=== PATIENT | female | born 1985 | race Hispanic/Latino ===

== ENCOUNTER 2022-11-05 10:45 | Inpatient (IN) | payer SELFPAY ==
[2022-11-05] MEDS ORDERED: levETIRAcetam 500 MG/5 ML VIAL ONE ×2 (11:19→11:21)
[2022-11-05 11:26] LABS: #Eosinphils 0.1 thou/uL (0.0-0.7); #Monocytes 0.5 thou/uL (0.11-0.59); #Neutrophils 3.3 thou/uL (1.40-6.50); %Basophils 0.6 % (0.0-1.0); %Eosinophils 1.4 % (0.0-10.0); %Lymphocytes 39.4 % (21.0-51.0); %Monocytes 7.9 % (0.0-10.0); %Neutrophils 50.4 % (42.0-75.0); Hemoglobin 12.9 g/dL (12.0-16.0); Mean Corpuscular Hemoglobin 33.7 pg (27.0-31.0); Mean Corpuscular Volume 96.3 fl (78.0-98.0); Mean Platelet Volume 8.5 fL (7.4-10.4); Platelet Count 254 10x3/uL (130-400); RBC Distribution Width 12.2 % (11.5-14.5); Red Blood Cell (RBC) Count 3.83 mill/uL (4.20-5.40); White Blood Cell (WBC) Count 6.6 10x3/uL (4.8-10.8)
[2022-11-05 11:39] LABS: Bacteria/HPF None Seen HPF (None Seen); Bilirubin Negative (Negative); Blood, Urine Negative (Negative); CAUTI Indications for Culture Spinal Cord Injury; Clarity Clear (Clear); Glucose, Urine (Dipstick) Normal (Negative); Ketone, Urine Negative (Negative); Leukocyte Negative Leu/uL (Negative); Nitrite Negative (Negative); Protein, Urine (Dipstick) Negative (Neg-Trace); RBC/HPF 0-3 HPF (0-3); Specific Gravity, Urine 1.027 (1.002-1.036); Squamous Epithelial 0-3 HPF (0-3); Urobilinogen Normal mg/dL (Less than 2); WBC/HPF 0-3 HPF (0-3)
[2022-11-05 11:42] LABS: Pregnancy Test - Urine (BHCG) Negative (Negative); Pregu Control Background? CLEAR/WHITE (CLR/WHITE); Pregu Control Bar Appear? YES (CONTROL BAR); Specific Gravity 1.027 (1.002-1.036); Urine Culture Reflex No No
[2022-11-05] MEDS ORDERED: Fosphenytoin Sodium 1,500 MG, Admixture Fee 1 EACH in Sodium Chloride 0.9% 100 ML IVPB SCH (12:00)
[2022-11-05] MEDS ORDERED: Fosphenytoin Sodium 1,500 MG in Sodium Chloride 0.9% 100 ML IVPB SCH (12:00)
[2022-11-05 12:02] LABS: Amphetamine Not Detected (NotDetected); Barbiturates Screen Detected (NotDetected); Benzodiazepine Screen Not Detected (NotDetected); Cocaine Metabolite Screen Not Detected (NotDetected); Methadone Not Detected (NotDetected); Methamphetamine Not Detected (NotDetected); Opiate Screen Not Detected (NotDetected); Oxycodone Screen Not Detected (NotDetected); Phencyclidine (PCP) Not Detected (NotDetected); THC/Cannabinoid Screen Not Detected (NotDetected); Tricyclic Screen Not Detected (NotDetected)
[2022-11-05 12:45] LABS: ALT (SGPT) 25 U/L (8-55); AST (SGOT) 20 U/L (5-34); Albumin 3.6 g/dL (3.5-5.0); Alkaline Phosphatase 84 U/L (40-110); Anion Gap 13 mmol/L (10-20); BUN (Urea Nitrogen) 8 mg/dL (7.0-18.7); Bilirubin, Total 0.2 mg/dL (0.2-1.2); Calc. Creatinine Clearance 0 mL/min (70-130); Calcium 8.3 mg/dL (7.8-10.44); Carbon Dioxide 20 mmol/L (22-29); Chloride 107 mmol/L (98-107); Estimated GFR 122; Globulin 3.3 g/dL (2.4-3.5); Glucose 91 mg/dL (70-105); Potassium 3.7 mmol/L (3.5-5.1); Protein, Total 6.9 g/dL (6.0-8.3); Sodium 136 mmol/L (136-145)
[2022-11-05] MEDS ORDERED: Ondansetron ODT 4 MG TAB SL PRN (13:45)
[2022-11-05] MEDS ORDERED: Ondansetron PF 4 MG/2 ML Vial IVP PRN (13:45)
[2022-11-05] MEDS ORDERED: Acetaminophen 325 MG TAB PO PRN (13:45)
[2022-11-05] MEDS ORDERED: Acetaminophen 500 MG TAB ONE (14:26)
[2022-11-05] MEDS ORDERED: Sertraline 100 MG TAB PO SCH (15:30)
[2022-11-05] MEDS ORDERED: Phenytoin Extended Release 100 MG CAP PO SCH (15:30)
[2022-11-05 16:43] VITALS: BMI 35.6
[2022-11-05] MEDS ORDERED: Lorazepam 2 MG/ML VIAL SLOW IVP PRN (18:49)
[2022-11-05 20:40] LABS: Dilantin 11.2 ug/mL (10.0-20.0)
[2022-11-05] MEDS ORDERED: Divalproex Sodium 125 mg Sprinkle Capsule PO SCH (21:00)
[2022-11-05] MEDS ORDERED: levETIRAcetam 500 MG TAB PO SCH (21:00)
[2022-11-05] MEDS: Fosphenytoin Sodium 100 MG in Sodium Chloride 0.9% 50 ML IVPB SCH (21:51)
[2022-11-05] MEDS ORDERED: Lacosamide 200 MG/20 ML VIAL SLOW IVP SCH (22:00)
[2022-11-06] MEDS: Lorazepam 2 MG/ML VIAL SLOW IVP PRN ×2 (02:32→08:08)
[2022-11-06] MEDS: Fosphenytoin Sodium 100 MG in Sodium Chloride 0.9% 50 ML IVPB SCH (06:14)
[2022-11-06 07:06] LABS: #Eosinphils 0.1 thou/uL (0.0-0.7); #Monocytes 0.5 thou/uL (0.11-0.59); #Neutrophils 2.9 thou/uL (1.40-6.50); %Basophils 0.7 % (0.0-1.0); %Lymphocytes 41.6 % (21.0-51.0); %Monocytes 7.8 % (0.0-10.0); %Neutrophils 48.7 % (42.0-75.0); Hemoglobin 14.1 g/dL (12.0-16.0); Mean Corpuscular Hemoglobin 32.9 pg (27.0-31.0); Mean Platelet Volume 8.8 fL (7.4-10.4); Platelet Count 274 10x3/uL (130-400); RBC Distribution Width 12.4 % (11.5-14.5); Red Blood Cell (RBC) Count 4.28 mill/uL (4.20-5.40)
[2022-11-06 07:24] LABS: Anion Gap 13 mmol/L (10-20); BUN (Urea Nitrogen) 8 mg/dL (7.0-18.7); Calc. Creatinine Clearance 211 mL/min (70-130); Calcium 8.8 mg/dL (7.8-10.44); Carbon Dioxide 23 mmol/L (22-29); Chloride 105 mmol/L (98-107); Estimated GFR 122; Glucose 81 mg/dL (70-105); Potassium 3.8 mmol/L (3.5-5.1); Sodium 137 mmol/L (136-145)
[2022-11-06] MEDS: Sertraline 100 MG TAB PO SCH (08:08)
[2022-11-06] MEDS ORDERED: levETIRAcetam 500 MG/5 ML VIAL SLOW IVP SCH (09:00)
[2022-11-06] MEDS ORDERED: levETIRAcetam in NS 1,500 MG in Premix Bag 1 BAG IVPB SCH (09:00)
[2022-11-06] MEDS ORDERED: Phenytoin Extended Release 100 MG CAP PO SCH (09:00)
[2022-11-06] MEDS ORDERED: levETIRAcetam 500 MG TAB PO SCH (09:00)
[2022-11-06] MEDS ORDERED: Lacosamide 50 MG in Sodium Chloride 0.9% 50 ML IVPB SCH (09:00)
[2022-11-06] MEDS: levETIRAcetam 500 MG TAB PO SCH (20:54)
[2022-11-06] MEDS: Lacosamide 50 mg Tablet PO SCH (20:54)
[2022-11-07] MEDS: Acetaminophen 325 MG TAB PO PRN ×2 (01:54→09:10)
[2022-11-07 06:02] LABS: #Eosinphils 0.1 thou/uL (0.0-0.7); #Monocytes 0.5 thou/uL (0.11-0.59); #Neutrophils 2.5 thou/uL (1.40-6.50); %Basophils 0.7 % (0.0-1.0); %Eosinophils 1.8 % (0.0-10.0); %Lymphocytes 46.8 % (21.0-51.0); %Monocytes 8.3 % (0.0-10.0); %Neutrophils 42.2 % (42.0-75.0); Hemoglobin 13.9 g/dL (12.0-16.0); Mean Corpuscular HGB CONC 34.2 g/dL (32.0-36.0); Mean Corpuscular Volume 96.7 fl (78.0-98.0); Mean Platelet Volume 8.4 fL (7.4-10.4); Platelet Count 260 10x3/uL (130-400); RBC Distribution Width 12.4 % (11.5-14.5); Red Blood Cell (RBC) Count 4.21 mill/uL (4.20-5.40)
[2022-11-07 06:18] LABS: Anion Gap 14 mmol/L (10-20); BUN (Urea Nitrogen) 9 mg/dL (7.0-18.7); Calc. Creatinine Clearance 187 mL/min (70-130); Calcium 8.8 mg/dL (7.8-10.44); Carbon Dioxide 22 mmol/L (22-29); Chloride 105 mmol/L (98-107); Estimated GFR 118; Glucose 85 mg/dL (70-105); Potassium 3.7 mmol/L (3.5-5.1); Sodium 137 mmol/L (136-145)
[2022-11-07] MEDS ORDERED: Phenytoin Extended Release 100 MG CAP PO SCH (09:00)
[2022-11-07] MEDS: Sertraline 100 MG TAB PO SCH (09:09)
[2022-11-07] MEDS: levETIRAcetam 500 MG TAB PO SCH (09:09)
[2022-11-07] MEDS: Lacosamide 50 mg Tablet PO SCH (09:09)
[2022-11-07 11:46] VITALS: TEMP 98.8
[2022-11-07 16:28] VITALS: BP 101/67
== END 2022-11-07 16:30 | disposition home or self-care (01) | DRG 880 ==
LOC: ERS 10:45 → T4-A 13:41 → OBSVTOIN 13:41 → IMCU/EMU 21:03 → 2SE 11-06 16:12
PROVIDERS: ADMIT Internal Medicine; ATTEND Hospitalist
DX: F44.5 Conversion disorder with seizures or convulsions (principal); F84.0 Autistic disorder; F41.9 Anxiety disorder, unspecified; F42.9 Obsessive-compulsive disorder, unspecified; F20.9 Schizophrenia, unspecified; Z88.0 Allergy status to penicillin; Z88.8 Allergy status to other drugs, medicaments and biological substances; Z79.899 Other long term (current) drug therapy; Z90.49 Acquired absence of other specified parts of digestive tract; Z98.890 Other specified postprocedural states; Z87.820 Personal history of traumatic brain injury
CPT/HCPCS: 36415; 80048; 80053; 80177; 80185; 80306; 81001; 81025; 84146; 85025; 93005; 94760; 95816; 95819; 95957; 96365; 96367; 96375; C9254; G0378; J1953; J2060; J3490; Q2009

== ENCOUNTER 2022-11-08 11:08 | Emergency (ER) | payer OTHER, SELFPAY ==
[2022-11-08] MEDS ORDERED: levETIRAcetam 500 MG/5 ML VIAL ONE (11:15)
[2022-11-08 11:49] LABS: Bacteria/HPF None Seen HPF (None Seen); Bilirubin Negative (Negative); Blood, Urine Negative (Negative); CAUTI Indications for Culture Alt mental st,lethar; Clarity Clear (Clear); Glucose, Urine (Dipstick) Normal (Negative); Ketone, Urine Negative (Negative); Leukocyte 25 Leu/uL (Negative); Nitrite Negative (Negative); Protein, Urine (Dipstick) 10 mg/dL (Neg-Trace); RBC/HPF 0-3 HPF (0-3); Specific Gravity, Urine 1.021 (1.002-1.036); Squamous Epithelial 0-3 HPF (0-3); Urobilinogen Normal mg/dL (Less than 2); WBC/HPF 0-3 HPF (0-3)
[2022-11-08 12:01] LABS: Pregnancy Test - Urine (BHCG) Negative (Negative); Pregu Control Background? CLEAR/WHITE (CLR/WHITE); Pregu Control Bar Appear? YES (CONTROL BAR); Specific Gravity 1.035 (1.002-1.036); Urine Culture Reflex No No
[2022-11-08 12:02] LABS: #Basophils 0.1 thou/uL (0.0-0.2); #Eosinphils 0.1 thou/uL (0.0-0.7); #Monocytes 0.6 thou/uL (0.11-0.59); #Neutrophils 3.7 thou/uL (1.40-6.50); %Basophils 0.7 % (0.0-1.0); %Eosinophils 1.4 % (0.0-10.0); %Lymphocytes 41.4 % (21.0-51.0); %Monocytes 7.9 % (0.0-10.0); %Neutrophils 48.3 % (42.0-75.0); Hemoglobin 13.6 g/dL (12.0-16.0); Mean Corpuscular HGB CONC 34.7 g/dL (32.0-36.0); Mean Corpuscular Volume 95.1 fl (78.0-98.0); Mean Platelet Volume 8.4 fL (7.4-10.4); Platelet Count 254 10x3/uL (130-400); RBC Distribution Width 12.2 % (11.5-14.5); Red Blood Cell (RBC) Count 4.12 mill/uL (4.20-5.40); White Blood Cell (WBC) Count 7.6 10x3/uL (4.8-10.8)
[2022-11-08 12:35] LABS: Amphetamine Not Detected (NotDetected); Barbiturates Screen Detected (NotDetected); Benzodiazepine Screen Detected (NotDetected); Cocaine Metabolite Screen Not Detected (NotDetected); Methadone Not Detected (NotDetected); Methamphetamine Not Detected (NotDetected); Opiate Screen Not Detected (NotDetected); Oxycodone Screen Not Detected (NotDetected); Phencyclidine (PCP) Not Detected (NotDetected); THC/Cannabinoid Screen Not Detected (NotDetected); Tricyclic Screen Not Detected (NotDetected)
[2022-11-08 13:01] LABS: Albumin 3.9 g/dL (3.5-5.0)
[2022-11-08 13:02] LABS: Chloride 105 mmol/L (98-107); Sodium 136 mmol/L (136-145)
[2022-11-08 13:03] LABS: Calcium 8.8 mg/dL (7.8-10.44)
[2022-11-08 13:04] LABS: Globulin 3.5 g/dL (2.4-3.5); Glucose 84 mg/dL (70-105); Protein, Total 7.4 g/dL (6.0-8.3)
[2022-11-08 13:05] LABS: Anion Gap 14 mmol/L (10-20); Bilirubin, Total 0.2 mg/dL (0.2-1.2); Carbon Dioxide 21 mmol/L (22-29)
[2022-11-08 13:06] LABS: Alkaline Phosphatase 92 U/L (40-110)
[2022-11-08 13:07] LABS: Calc. Creatinine Clearance 0 mL/min (70-130); Estimated GFR 119
[2022-11-08 13:08] LABS: BUN (Urea Nitrogen) 8 mg/dL (7.0-18.7)
[2022-11-08 13:09] LABS: ALT (SGPT) 25 U/L (8-55); AST (SGOT) 19 U/L (5-34)
[2022-11-08] MEDS ORDERED: Acetaminophen 500 MG TAB ONE (13:44)
== END 2022-11-08 13:47 | disposition home or self-care (01) ==
LOC: ERS 11:08
DX: R56.9 Unspecified convulsions (principal)
CPT/HCPCS: 36415; 70450; 80053; 80177; 80306; 81001; 81025; 85025; J1953

== ENCOUNTER 2022-11-09 10:30 | Emergency (ER) | payer OTHER | END 2022-11-09 13:47 | disposition home or self-care (01) | LOC: ERS 10:30 | DX: G40.909 Epilepsy, unspecified, not intractable, without status epilepticus (principal) | CPT/HCPCS: 36415; 70450; 80053; 80177; 80306; 81001; 81025; 85025; 96365; C9254; J1953; J3490 ==

== ENCOUNTER 2022-11-11 12:53 | Emergency (ER) | payer OTHER ==
[2022-11-11] MEDS ORDERED: LORazepam 2 MG/ML SYR.(CARPUJECT) ONE (13:19)
[2022-11-11 13:58] LABS: Amphetamine Not Detected (NotDetected); Barbiturates Screen Detected (NotDetected); Benzodiazepine Screen Detected (NotDetected); Cocaine Metabolite Screen Not Detected (NotDetected); Methadone Not Detected (NotDetected); Methamphetamine Not Detected (NotDetected); Opiate Screen Not Detected (NotDetected); Oxycodone Screen Not Detected (NotDetected); Phencyclidine (PCP) Not Detected (NotDetected); THC/Cannabinoid Screen Not Detected (NotDetected); Tricyclic Screen Not Detected (NotDetected)
[2022-11-11 13:59] LABS: Bilirubin Negative (Negative); Blood, Urine Negative (Negative); CAUTI Indications for Culture Alt mental st,lethar; Clarity Clear (Clear); Glucose, Urine (Dipstick) Normal (Negative); Ketone, Urine 20 mg/dL (Negative); Leukocyte 75 Leu/uL (Negative); Nitrite Negative (Negative); Protein, Urine (Dipstick) 30 mg/dL (Neg-Trace); Specific Gravity, Urine 1.039 (1.002-1.036); Squamous Epithelial 0-3 HPF (0-3)
[2022-11-11 14:05] LABS: #Basophils 0.1 thou/uL (0.0-0.2); #Eosinphils 0.2 thou/uL (0.0-0.7); #Monocytes 0.5 thou/uL (0.11-0.59); #Neutrophils 3.5 thou/uL (1.40-6.50); %Basophils 0.7 % (0.0-1.0); %Eosinophils 2.5 % (0.0-10.0); %Lymphocytes 38.9 % (21.0-51.0); %Monocytes 6.8 % (0.0-10.0); Hemoglobin 13.6 g/dL (12.0-16.0); Mean Corpuscular HGB CONC 35.2 g/dL (32.0-36.0); Mean Corpuscular Hemoglobin 33.3 pg (27.0-31.0); Mean Corpuscular Volume 94.6 fl (78.0-98.0); Mean Platelet Volume 8.6 fL (7.4-10.4); Platelet Count 258 10x3/uL (130-400); RBC Distribution Width 12.2 % (11.5-14.5); Red Blood Cell (RBC) Count 4.08 mill/uL (4.20-5.40); White Blood Cell (WBC) Count 6.9 10x3/uL (4.8-10.8)
[2022-11-11 14:16] LABS: Bacteria/HPF 1+ HPF (None Seen); RBC/HPF 0-3 HPF (0-3); WBC/HPF 0-3 HPF (0-3)
[2022-11-11 14:17] LABS: Urine Culture Reflex No No
[2022-11-11 14:40] LABS: ALT (SGPT) 29 U/L (8-55); AST (SGOT) 24 U/L (5-34); Albumin 3.9 g/dL (3.5-5.0); Alkaline Phosphatase 89 U/L (40-110); Anion Gap 13 mmol/L (10-20); BUN (Urea Nitrogen) 10 mg/dL (7.0-18.7); Bilirubin, Total Less than 0.2 mg/dL (0.2-1.2); Calc. Creatinine Clearance 0 mL/min (70-130); Carbon Dioxide 20 mmol/L (22-29); Chloride 106 mmol/L (98-107); Estimated GFR 119; Globulin 3.8 g/dL (2.4-3.5); Glucose 100 mg/dL (70-105); Potassium 3.9 mmol/L (3.5-5.1); Protein, Total 7.7 g/dL (6.0-8.3); Sodium 135 mmol/L (136-145)
== END 2022-11-11 15:00 | disposition home or self-care (01) ==
LOC: ERS 12:53
DX: R56.9 Unspecified convulsions (principal); Z87.891 Personal history of nicotine dependence
CPT/HCPCS: 36415; 80053; 80306; 81001; 84146; 85025; J2060

== ENCOUNTER 2022-11-12 12:39 | Emergency (ER) | payer OTHER ==
[2022-11-12 14:51] LABS: #Basophils 0.1 thou/uL (0.0-0.2); #Eosinphils 0.1 thou/uL (0.0-0.7); #Monocytes 0.5 thou/uL (0.11-0.59); #Neutrophils 3.6 thou/uL (1.40-6.50); %Basophils 0.7 % (0.0-1.0); %Eosinophils 1.7 % (0.0-10.0); %Monocytes 6.5 % (0.0-10.0); Hemoglobin 14.4 g/dL (12.0-16.0); Mean Corpuscular Hemoglobin 33.3 pg (27.0-31.0); Mean Corpuscular Volume 94.9 fl (78.0-98.0); Mean Platelet Volume 8.6 fL (7.4-10.4); Platelet Count 279 10x3/uL (130-400); RBC Distribution Width 12.3 % (11.5-14.5); Red Blood Cell (RBC) Count 4.33 mill/uL (4.20-5.40); White Blood Cell (WBC) Count 6.9 10x3/uL (4.8-10.8)
[2022-11-12 15:13] LABS: Anion Gap 15 mmol/L (10-20); BUN (Urea Nitrogen) 9 mg/dL (7.0-18.7); CK (CPK) 20 U/L (29-168); Calc. Creatinine Clearance 0 mL/min (70-130); Calcium 9.1 mg/dL (7.8-10.44); Carbon Dioxide 23 mmol/L (22-29); Chloride 105 mmol/L (98-107); Estimated GFR 117; Glucose 111 mg/dL (70-105); Potassium 4.3 mmol/L (3.5-5.1); Sodium 139 mmol/L (136-145)
== END 2022-11-12 16:17 ==
LOC: ERS 12:39
DX: R56.9 Unspecified convulsions (principal); Z87.891 Personal history of nicotine dependence
CPT/HCPCS: 36415; 80048; 80053; 80306; 81001; 82550; 84146; 85025; 99284; 99285; J2060

== ENCOUNTER 2022-12-09 23:02 | Emergency (ER) | payer OTHER ==
[2022-12-09] MEDS ORDERED: Albuterol 200 PUFF INH ONE (23:17)
[2022-12-09] MEDS ORDERED: Dexameth. Sod Phosp. 10 MG/ML (CHEMO USE ONLY) ONE (23:33)
[2022-12-10 00:15] LABS: SARS-CoV-2 NAA Rapid Test Not Detected (NotDetected)
[2022-12-10] MEDS ORDERED: Ibuprofen 200 MG TAB ONE (00:22)
== END 2022-12-10 00:31 | disposition home or self-care (01) ==
LOC: ERS 23:02
DX: R05.9 Cough, unspecified (principal); Z20.822 Contact with and (suspected) exposure to COVID-19; Z87.891 Personal history of nicotine dependence
CPT/HCPCS: J1100

== ENCOUNTER 2022-12-20 14:03 | Emergency (ER) | payer OTHER | END 2022-12-20 16:22 | disposition home or self-care (01) | LOC: ERS 14:03 | DX: R56.9 Unspecified convulsions (principal); Z87.891 Personal history of nicotine dependence | CPT/HCPCS: 36416; 99284 ==